=== PATIENT | female | born 1995 | race Caucasian/White ===

== ENCOUNTER 2021-08-13 20:08 | Emergency (ER) | payer MEDICAID, OTHER, SELFPAY ==
--- NOTE | ~2021-08-13 | US_ITS ---
EXAMINATION: US OBSTETRICAL ULTRASOUND CLINICAL INFORMATION: Right abdominal pain. Question ectopic. COMPARISON: None. LMP: 07/02/2021. Gestational age by maternal dates is 6 weeks 1 day. Estimated date of delivery by maternal dates is 04/08/2022. TECHNIQUE: Transabdominal and endovaginal pelvic ultrasound. FINDINGS: There is a single intrauterine gestational sac with visible yolk sac. There is no pole seen at this time. There is no significant subchorionic hemorrhage or hematoma. Mean sac diameter: 0.68 cm (5 weeks 2 days). MATERNAL ADNEXA: The right maternal ovary measures 4.4 x 2.8 x 3 cm. Corpus luteal cyst noted. The left maternal ovary measures 3.9 x 1.8 x 2.1 cm. No adnexal mass. There is no significant maternal adnexal mass. Small volume of free fluid near the right ovary. US/US OB pelvic and transvaginal IMPRESSION: There is no ectopic identified. There is an intrauterine gestational sac with yolk sac. No pole seen at this time, possibly secondary to the early stage of . Continued follow-up recommended.
[2021-08-13 20:16] VITALS: BP 106/54; PULSE 84; RESP 18; TEMP 37.3; O2SAT 100; BMI 23.2
--- NOTE | 2021-08-13 22:47 | ED_ITS ---
HPI - Female Genitourinary General Chief complaint: Vaginal Bleeding <Des Heredia MD - Last Filed: 08/14/21 00:59> Stated complaint: , bleeding + cramping <Des Heredia MD - Last Filed: 08/14/21 00:59> Time Seen by Provider: 08/13/21 22:47 <Des Heredia MD - Last Filed: 08/14/21 00:59> Source: patient <Des Heredia MD - Last Filed: 08/14/21 00:59> Mode of arrival: ambulatory <Des Heredia MD - Last Filed: 08/14/21 00:59> Limitations: no limitations <Des Heredia MD - Last Filed: 08/14/21 00:59> History of Present Illness HPI Narrative: Patient is currently , 1 week ago she had spotting. Today she had cramping. , LMP 8/17. Positive dysuria <Des Heredia MD - Last Filed: 08/14/21 00:59> Related Data Allergies/Adverse reactions: Allergies Allergy/AdvReac Type Severity Reaction Status Date / Time No Known Allergies Allergy Verified 08/13/21 22:50 <Des Heredia MD - Last Filed: 08/14/21 00:59> Review of Systems Constitutional: Constitutional: Reports no additional constitutional complaints <Des Heredia MD - Last Filed: 08/14/21 00:59> Eyes: Eyes: Reports no additional eye complaints <Des Heredia MD - Last Filed: 08/14/21 00:59> ENT: Denies dizziness <Des Heredia MD - Last Filed: 08/14/21 00:59> Cardiovascular: Cardiovascular: Reports no additional cardiovascular complaints <Des Heredia MD - Last Filed: 08/14/21 00:59> Respiratory: Respiratory: Reports as per HPI <Des Heredia MD - Last Filed: 08/14/21 00:59> Gastrointestinal: Gastrointestinal: Reports no additional gastrointestinal complaints <Des Heredia MD - Last Filed: 08/14/21 00:59> Genitourinary: Genitourinary: Reports no additional female genitourinary complaints <Des Heredia MD - Last Filed: 08/14/21 00:59> Musculoskeletal: Musculoskeletal: Reports no additional musculoskeletal complaints <Des Heredia MD - Last Filed: 08/14/21 00:59> Integumentary/Breasts: Skin/Breast: Denies rash <Des Hereida MD - Last Filed: 08/14/21 00:59> Neurologic: Reports system reviewed and no additional complaints, except as documented, Denies dizziness and Denies Sensory deficit (Neuro) <Des Heredia MD - Last Filed: 08/14/21 00:59> Psychiatric: Psychiatric: Denies anxiety <Des Heredia MD - Last Filed: 08/14/21 00:59> [facility] Social History Social History: Social History Alcohol intake: never Patient Tobacco Use Status: Never used Tobacco Use of substances other than those prescribed or required for medical reasons: No Advance Directives: No Advance Directives Information Provided: Yes Patient : Yes <Des Heredia MD - Last Filed: 08/14/21 00:59> Physical Exam Vital Signs: Vital Signs: Last Vital Signs Temp 98.2 F 08/14/21 02:26 Pulse 70 08/14/21 02:26 Resp 18 08/14/21 02:26 BP 96/60 08/14/21 02:26 Pulse Ox 100 08/14/21 02:26 Body Mass Index 23.2 <Des Heredia MD - Last Filed: 08/14/21 00:59> Vital Signs: Last Vital Signs Temp 98.2 F 08/14/21 02:26 Pulse 70 08/14/21 02:26 Resp 18 08/14/21 02:26 BP 96/60 08/14/21 02:26 Pulse Ox 100 08/14/21 02:26 Body Mass Index 23.2 <Martin De La Torre MD - Last Filed: 08/14/21 02:28> Const: General: healthy appearing <Des Heredia MD - Last Filed: 08/14/21 00:59> Nutritional Appearance: average body habitus <Des Heredia MD - Last Filed: 08/14/21 00:59> Orientation/consciousness: oriented to person and patient oriented x3 <Des Heredia MD - Last Filed: 08/14/21 00:59> Limitations: no limitations <eDs Heredia MD - Last Filed: 08/14/21 00:59> HENMT: Head: Yes normal to inspection <Des Heredia MD - Last Filed: 08/14/21 00:59> Ears: external ears normal <Des Heredia MD - Last Filed: 08/14/21 00:59> General nose exam: Normal external nose present <Des Heredia MD - Last Filed: 08/14/21 00:59> Mouth: Normal oral and palatal mucosa present and oropharynx normal <Des Heredia MD - Last Filed: 08/14/21 00:59> Throat: Yes posterior oropharynx normal <Des Heredia MD - Last Filed: 08/14/21 00:59> Eyes: General: appearance normal, both eyes and all related structures < Des Heredia MD - Last Filed: 08/14/21 00:59> Neck: Other: supple <Des Heredia MD - Last Filed: 08/14/21 00:59> Neck: Yes normal visual inspection <Des Heredia MD - Last Filed: 08/14/21 00:59> Chest: Chest palpation & inspection: normal inspection of the chest <Des Heredia MD - Last Filed: 08/14/21 00:59> Resp: Auscultation: clear to auscultation bilaterally <Des Heredia MD - Last Filed: 08/14/21 00:59> Cardio: Jugular venous distension: no JVD <Des Heredia MD - Last Filed: 08/14/21 00:59> Rate: regular rate <Des Heredia MD - Last Filed: 08/14/21 00:59> Rhythm: regular rhythm <Des Heredia MD - Last Filed: 08/14/21 00:59> Heart sounds: S1 normal heart sound present and S2 normal heart sound present <Des Heredia MD - Last Filed: 08/14/21 00:59> GI: Other: soft abdomen, mild right lower abdominal pain <Des Heredia MD - Last Filed: 08/14/21 00:59> Auscultation: normal bowel sounds <Des Heredia MD - Last Filed: 08/14/21 00:59> : General: Yes no CVA tenderness <Des Heredia MD - Last Filed: 08/14/21 00:59> Back/Spine/Pelvis: Back: no CVA tenderness <Des Heredia MD - Last Benjamín ed: 08/14/21 00:59> Skin: General skin exam: no rashes or lesions noted <Des Heredia MD - Last Filed: 08/14/21 00:59> Neuro: General: oriented to person and patient oriented x3 <Des Heredia MD - Last Filed: 08/14/21 00:59> Cranial nerves: Yes CN's II-XII intact bilaterally <Des Heredia MD - Last Filed: 08/14/21 00:59> Motor exam (neuro): 5/5 motor strength present throughout <Des Heredia MD - Last Filed: 08/14/21 00:59> Sensory Exam: No Sensory deficit (Neuro) <Des Heredia MD - Last Filed: 08/14/21 00:59> Extrem: General: Yes normal to inspection <Des Heredia MD - Last Filed: 08/14/21 00:59> Psych: Appearance: grossly normal <Des Heredia MD - Last Filed: 08/14/21 00:59> Course Reevaluation(s) Reevaluation #1: quantitative was 3808, bedside ultrasound did not show IUP will obtain transvaginal for rule out ectopic <Des Heredia MD - Last Filed: 08/14/21 00:59> Time: 00:45 <Des Heredia MD - Last Filed: 08/14/21 00:59> Reevaluation #2: signed Patient out to Dr De La Torre <Des Heredia MD - Last Filed: 08/14/21 00:59> Time: 00:59 <Des Heredia MD - Last Filed: 08/14/21 00:59> Reevaluation #3: Ultrasound showed IUP no pole seen likely 6 weeks 1 day no ectopics in discharge patient home patient without any significant discomfort or bleeding <Martin De La Torre MD - Last Filed: 08/14/21 02:28> Time: 02:28 <Martin De La Torre MD - Last Filed: 08/14/21 02:28> MDM - Female Genitourinary Lab Data Result diagrams: : 08/13/21 23:12 08/13/21 23:12 <Des Heredia MD - Last Filed: 08/14/21 00:59> Labs: Lab Results 08/13/21 08/13/21 08/13/21 Range/Units 23:12 23:12 23:25 WBC 8.3 (4.8-10.8) X10*3/uL RBC 3.77 L (4.20-5.50) X10*6/uL Hgb 11.5 L (12.0-16.0) g/dl Hct 34.0 L (37-47) % MCV 90.2 (80-98) fL MCH 30.5 (27.0-33.0) pg MCHC 33.8 (31.0-35.0) g/dl RDW 13.1 (11.0-16.0) % Plt Count 354 (160-400) X10*3/uL MPV 8.6 L (9.4-12.3) fL Immature Gran % (Auto) 0.1 (0.0-0.4) % Neut % (Auto) 48.1 (45-73) % Lymph % (Auto) 39.5 (20-40) % [place] % (Auto) 10.2 (2-11) % Eos % (Auto) 1.6 (0-4) % Baso % (Auto) 0.5 (0-2) % Lymph # (Auto) 3.3 (1.2-4.9) X10*3/uL [place] # (Auto) 0.9 (0.1-1.2) X10*3/uL Eos # (Auto) 0.1 (0.0-0.4) X10*3/uL Baso # (Auto) 0.0 (0.0-0.2) X10*3/uL Abs Immat Gran (auto) 0.01 (0.00-0.03) X10*3/uL Absolute Neuts (auto) 4.0 (2.0-8.3) X10*3/uL Absolute Nucleated RBC 0.000 (0.0-0.012) X10*3/uL Nucleated RBC % (auto) 0.0 (0.0-0.2) /100WBC Sodium 137 (135-145) mmol/L Potassium 4.2 (3.3-5.1) mmol/L Chloride 108 (96-108) mmol/L Carbon Dioxide 21 L (22-29) mmol/L Anion Gap 12 (12-20) BUN 6 L (9-16) mg/dL Creatinine 0.66 (0.5-1.4) mg/dL Estim Creat Clear Calc 103.0 Estimated GFR > 60 Random Glucose 93 (60-115) mg/dL Calcium 8.8 (8.4-10.2) mg/dL Beta HCG, Quant 3808 mIU/mL Urine Color YELLOW Urine Appearance HAZY Urine pH 7.5 (5.0-8.0) Ur Specific [place] 1.015 (1.005-1.025) Urine Protein NEG (NEG-TRACE) MG/DL Urine Glucose (UA) NEG (NEG) MG/DL Urine Ketones NEG (NEG) MG/DL Urine Blood NEG (NEG) Urine Nitrite NEG (NEG) Ur Leukocyte Esterase NEG (NEG) <Des Heredia MD - Last Filed: 08/14/21 00:59> Lab Results 08/13/21 08/13/21 08/13/21 Range/Units 23:12 23:12 23:25 WBC 8.3 (4.8-10.8) X10*3/uL RBC 3.77 L (4.20-5.50) X10*6/uL Hgb 11.5 L (12.0-16.0) g/dl Hct 34.0 L (37-47) % MCV 90.2 (80-98) fL MCH 30.5 (27.0-33.0) pg MCHC 33.8 (31.0-35.0) g/dl RDW 13.1 (11.0-16.0) % Plt Count 354 (160-400) X10*3/uL MPV 8.6 L (9.4-12.3) fL Immature Gran % (Auto) 0.1 (0.0-0.4) % Neut % (Auto) 48.1 (45-73) % Lymph % (Auto) 39.5 (20-40) % [place] % (Auto) 10.2 (2-11) % Eos % (Auto) 1.6 (0-4) % Baso % (Auto) 0.5 (0-2) % Lymph # (Auto) 3.3 (1.2-4.9) X10*3/uL [place] # (Auto) 0.9 (0.1-1.2) X10*3/uL Eos # (Auto) 0.1 (0.0-0.4) X10*3/uL Baso # (Auto) 0.0 (0.0-0.2) X10*3/uL Abs Immat Gran (auto) 0.01 (0.00-0.03) X10*3/uL Absolute Neuts (auto) 4.0 (2.0-8.3) X10*3/uL Absolute Nucleated RBC 0.000 (0.0-0.012) X10*3/uL Nucleated RBC % (auto) 0.0 (0.0-0.2) /100WBC Sodium 137 (135-145) mmol/L Potassium 4.2 (3.3-5.1) mmol/L Chloride 108 (96-108) mmol/L Carbon Dioxide 21 L (22-29) mmol/L Anion Gap 12 (12-20) BUN 6 L (9-16) mg/dL Creatinine 0.66 (0.5-1.4) mg/dL Estim Creat Clear Calc 103.0 Estimated GFR > 60 Random Glucose 93 (60-115) mg/dL Calcium 8.8 (8.4-10.2) mg/dL Beta HCG, Quant 3808 mIU/mL Urine Color YELLOW Urine Appearance HAZY Urine pH 7.5 (5.0-8.0) Ur Specific [place] 1.015 (1.005-1.025) Urine Protein NEG (NEG-TRACE) MG/DL Urine Glucose (UA) NEG (NEG) MG/DL Urine Ketones NEG (NEG) MG/DL Urine Blood NEG (NEG) Urine Nitrite NEG (NEG) Ur Leukocyte Esterase NEG (NEG) <Martin De La Torre MD - Last Filed: 08/14/21 02:28> Discharge Plan Discharge Clinical Impression: First-trimester bleeding <Des Heredia MD - Last Filed: 08/14/21 00:59> Patient Disposition: Home, Self-Care <Des Heredia MD - Last Filed: 08/14/21 00:59> Instructions: (ED), Subchorionic Hemorrhage (ED) <Des Heredia MD - Last Filed: 08/14/21 00:59> Additional Instructions: Follow-up with your OB doctor Report to ER if increased vaginal bleeding Seguimiento con ordaz m?dico obstetra Informe a la ricky de emergencias si aumenta el sangrado vaginal <Des Heredia MD - Last Filed: 08/14/21 00:59> Interventions: ED Discharge Assessment Last Done: 08/14/21 02:27 <Des Heredia MD - Last Filed: 08/14/21 00:59> Print Language: Paraguayan <Des Heredia MD - Last Filed: 08/14/21 00:59>
[2021-08-13 23:19] LABS: MANUAL DIFF FLAG NO
[2021-08-13 23:20] LABS: Basophils Percent Auto 0.5 % (0-2); Eosinophils Absolute Auto 0.1 X10*3/uL (0.0-0.4); Eosinophils Percent Auto 1.6 % (0-4); Hemoglobin 11.5 g/dl (12.0-16.0); Imm Gran Abs Auto 0.01 X10*3/uL (0.00-0.03); Imm Gran Pct Auto 0.1 % (0.0-0.4); Lymphocytes Absolute Auto 3.3 X10*3/uL (1.2-4.9); Lymphocytes Percent Auto 39.5 % (20-40); Mean Corpuscular HGB Conc 33.8 g/dl (31.0-35.0); Mean Corpuscular Hemoglobin 30.5 pg (27.0-33.0); Mean Corpuscular Volume 90.2 fL (80-98); Mean Platelet Volume 8.6 fL (9.4-12.3); Monocytes Absolute Auto 0.9 X10*3/uL (0.1-1.2); Monocytes Percent Auto 10.2 % (2-11); Neutrophils Percent Auto 48.1 % (45-73); Platelet Count 354 X10*3/uL (160-400); Red Blood Count 3.77 X10*6/uL (4.20-5.50); Red Cell Distribution Width 13.1 % (11.0-16.0); White Blood Count 8.3 X10*3/uL (4.8-10.8)
[2021-08-13 23:35] LABS: Appearance Urine HAZY; Color Urine YELLOW; Glucose Urine UA NEG (NEG); Leukocyte Esterase Urine NEG (NEG); Nitrite Urine NEG (NEG); PH 7.5 (5.0-8.0); Specific Gravity - Urine 1.015 (1.005-1.025); Urine Blood NEG (NEG); Urine Ketones NEG (NEG); Urine Protein NEG (NEG-TRACE)
[2021-08-13 23:38] LABS: Anion Gap 12 (12-20); Blood Urea Nitrogen 6 mg/dL (9-16); Calcium 8.8 mg/dL (8.4-10.2); Carbon Dioxide 21 mmol/L (22-29); Chloride 108 mmol/L (96-108); Estimated Glomerular Filt Rate > 60; Glucose Random 93 mg/dL (60-115); Potassium 4.2 mmol/L (3.3-5.1); Sodium 137 mmol/L (135-145)
[2021-08-14 00:35] LABS: HCG Quantitative 3808 mIU/mL
[2021-08-14 00:44] VITALS: BP 104/60; PULSE 86; RESP 15; TEMP 37; O2SAT 100
[2021-08-14 02:26] VITALS: BP 96/60; PULSE 70; RESP 18; TEMP 36.8; O2SAT 100
== END 2021-08-14 02:31 | disposition home or self-care (01) ==
PROVIDERS: Emergency Provider Emergency Medicine; PCP Nurse Practitioner Family
DX: O20.9 Hemorrhage in early pregnancy, unspecified (principal); Z3A.01 Less than 8 weeks gestation of pregnancy
CPT/HCPCS: 36415; 76801; 76817; 80048; 81003; 84702; 85025; 99284

== ENCOUNTER 2021-09-06 09:40 | Emergency (ER) | payer MEDICAID, SELFPAY ==
--- NOTE | ~2021-09-06 | US_ITS ---
EXAMINATION: US OBSTETRICAL ULTRASOUND CLINICAL INFORMATION: of 8 weeks and bleeding. COMPARISON: August 14, 2021. LMP: July 02, 2021. Gestational age by maternal dates is 9 weeks 3 days. Estimated date of delivery by maternal dates is April 08, 2022. TECHNIQUE: Ultrasound of the maternal pelvis is performed using transabdominal and transvaginal transducers. Transvaginal imaging is performed due to inadequate visualization transabdominally. M-mode Doppler is also performed. FINDINGS: There is a single intrauterine gestational sac with enlarged yolk sac 6 mm in diameter. No pole is identified. There is no significant subchorionic hemorrhage or hematoma. HR: Not detected. CRL (crown rump length): Not seen AUA: 6 weeks 0 days. FELICIA (estimated date of delivery): January 01, 2022 +/- 4 days. MATERNAL ADNEXA: The right maternal ovary measures 2.6 x 1.5 x 2.4 cm. There is a 1.3 x 1.9 x 1.3 cm likely corpus luteum cyst. The left maternal ovary measures 2.6 x 1.9 x 1.8 cm. There is no significant maternal adnexal mass. There is a small amount of fluid seen about both ovaries. US/US OB pelvic and transvaginal IMPRESSION: Intrauterine seen without pole or heart rate with enlarged yolk sac. Recommend continued close follow-up. At time of the first ultrasound of August 14, 2021 the average ultrasound age was 5 weeks and 2 days and using those dates the expected gestational age at this time would be approximately 8 weeks and 4 days versus the ultrasound age at this time of 6 weeks 0 days..
[2021-09-06 09:58] VITALS: BP 107/48; PULSE 80; RESP 18; TEMP 36.3; O2SAT 100; BMI 23.2
--- NOTE | 2021-09-06 10:48 | ED.FEMALEGU ---
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 Patient states she has a headache everyday. she was seen in the ED weeks ago, no on US. . LMP 07/02/21 Onset (ago): day(s) Severity: mild Vaginal bleeding: clots Associated symptoms: abdominal pain Related Data Allergies Allergy/AdvReac Type Severity Reaction Status Date / Time No Known Allergies Allergy Verified 08/13/21 22:50 Review of Systems Constitutional: Constitutional: Reports no additional constitutional complaints Eyes: Eyes: Reports no additional eye complaints ENT: Denies dizziness Cardiovascular: Cardiovascular: Reports no additional cardiovascular complaints Respiratory: Respiratory: Reports as per HPI Gastrointestinal: Gastrointestinal: Reports no additional gastrointestinal complaints Genitourinary: Genitourinary: Reports no additional female genitourinary complaints Musculoskeletal: Musculoskeletal: Reports no additional musculoskeletal complaints Integumentary/Breasts: Skin/Breast: Denies rash Neurologic: Reports system reviewed and no additional complaints, except as documented, Denies dizziness and Denies Sensory deficit (Neuro) Psychiatric: Psychiatric: Denies anxiety [facility] Social History Social History Alcohol intake: never Patient Tobacco Use Status: Never used Tobacco Advance Directives: No Advance Directives Information Provided: No Patient : Yes Physical Exam Vital Signs: Vital Signs: Last Vital Signs Temp 97.4 F 09/06/21 09:58 Pulse 80 09/06/21 09:58 Resp 18 09/06/21 09:58 BP 107/48 L 09/06/21 09:58 Pulse Ox 100 09/06/21 09:58 Body Mass Index 23.2 Const: General: healthy appearing Nutritional Appearance: average body habitus Orientation/consciousness: oriented to person and patient oriented x3 Limitations: no limitations HENMT: Head: Yes normal to inspection Ears: external ears normal General nose exam: Normal external nose present Mouth: Normal oral and palatal mucosa present and oropharynx normal Throat: Yes posterior oropharynx normal Eyes: General: appearance normal, both eyes and all related structures Neck: Other: supple Neck: Yes normal visual inspection Chest: Chest palpation & inspection: normal inspection of the chest Resp: Auscultation: clear to auscultation bilaterally Cardio: Jugular venous distension: no JVD Rate: regular rate Rhythm: regular rhythm Heart sounds: S1 normal heart sound present and S2 normal heart sound present GI: Inspection: Yes normal to inspection Palpation (GI): Soft to palpation, nontender and No hepatosplenomegaly present Auscultation: normal bowel sounds : General: Yes no CVA tenderness Back/Spine/Pelvis: Back: no CVA tenderness Skin: General skin exam: no rashes or lesions noted Neuro: General: oriented to person and patient oriented x3 Cranial nerves: Yes CN's II-XII intact bilaterally Motor exam (neuro): 5/5 motor strength present throughout Sensory Exam: No Sensory deficit (Neuro) Extrem: General: Yes normal to inspection Psych: Appearance: grossly normal Course Reevaluation(s) Reevaluation #1: Bedside ultrasound shows IUP could not see heart will send for transvaginal us Time: 11:05 Reevaluation #2: Official transvaginal show 5 week , HCG doubled, will dc with threatened ab Time: 13:[address] [facility] - Female Genitourinary Lab Data Result diagrams: 09/06/21 12:10 Labs: Lab Results 09/06/21 09/06/21 09/06/21 Range/Units 12:10 12:10 12:10 WBC 6.1 (4.8-10.8) X10*3/uL RBC 4.30 (4.20-5.50) X10*6/uL Hgb 13.0 (12.0-16.0) g/dl Hct 39.3 (37-47) % MCV 91.4 (80-98) fL MCH 30.2 (27.0-33.0) pg MCHC 33.1 (31.0-35.0) g/dl RDW 13.0 (11.0-16.0) % Plt Count 361 (160-400) X10*3/uL MPV 8.3 L (9.4-12.3) fL Immature Gran % (Auto) 0.3 (0.0-0.4) % Neut % (Auto) 57.4 (45-73) % Lymph % (Auto) 31.6 (20-40) % [place] % (Auto) 7.6 (2-11) % Eos % (Auto) 2.3 (0-4) % Baso % (Auto) 0.8 (0-2) % Lymph # (Auto) 1.9 (1.2-4.9) X10*3/uL [place] # (Auto) 0.5 (0.1-1.2) X10*3/uL Eos # (Auto) 0.1 (0.0-0.4) X10*3/uL Baso # (Auto) 0.1 (0.0-0.2) X10*3/uL Abs Immat Gran (auto) 0.02 (0.00-0.03) X10*3/uL Absolute Neuts (auto) 3.5 (2.0-8.3) X10*3/uL Absolute Nucleated RBC 0.000 (0.0-0.012) X10*3/uL Nucleated RBC % (auto) 0.0 (0.0-0.2) /100WBC Beta HCG, Quant 6787 mIU/mL Urine Color Urine Appearance Urine pH (5.0-8.0) Ur Specific [place] (1.005-1.025) Urine Protein (NEG-TRACE) MG/DL Urine Glucose (UA) (NEG) MG/DL Urine Ketones (NEG) MG/DL Urine Blood (NEG) Urine Nitrite (NEG) Ur Leukocyte Esterase (NEG) Urine RBC (0) /HPF Urine WBC (0-4) /HPF Ur Squamous Epith Cells /LPF Urine Bacteria /LPF Urine Test POSITIVE H (NEGATIVE) 09/06/21 Range/Units 12:10 WBC (4.8-10.8) X10*3/uL RBC (4.20-5.50) X10*6/uL Hgb (12.0-16.0) g/dl Hct (37-47) % MCV (80-98) fL MCH (27.0-33.0) pg MCHC (31.0-35.0) g/dl RDW (11.0-16.0) % Plt Count (160-400) X10*3/uL MPV (9.4-12.3) fL Immature Gran % (Auto) (0.0-0.4) % Neut % (Auto) (45-73) % Lymph % (Auto) (20-40) % [place] % (Auto) (2-11) % Eos % (Auto) (0-4) % Baso % (Auto) (0-2) % Lymph # (Auto) (1.2-4.9) X10*3/uL [place] # (Auto) (0.1-1.2) X10*3/uL Eos # (Auto) (0.0-0.4) X10*3/uL Baso # (Auto) (0.0-0.2) X10*3/uL Abs Immat Gran (auto) (0.00-0.03) X10*3/uL Absolute Neuts (auto) (2.0-8.3) X10*3/uL Absolute Nucleated RBC (0.0-0.012) X10*3/uL Nucleated RBC % (auto) (0.0-0.2) /100WBC Beta HCG, Quant mIU/mL Urine Color YELLOW Urine Appearance HAZY Urine pH 6.5 (5.0-8.0) Ur Specific [place] 1.010 (1.005-1.025) Urine Protein NEG (NEG-TRACE) MG/DL Urine Glucose (UA) NEG (NEG) MG/DL Urine Ketones NEG (NEG) MG/DL Urine Blood 3+ H (NEG) Urine Nitrite NEG (NEG) Ur Leukocyte Esterase TRACE H (NEG) Urine RBC 15-29 H (0) /HPF Urine WBC 0-2 (0-4) /HPF Ur Squamous Epith Cells 1+ /LPF Urine Bacteria 2+ /LPF Urine Test (NEGATIVE) Imaging Data transvaginal US: Radiologist's impression: IMPRESSION: Intrauterine seen without pole or heart rate with enlarged yolk sac. Recommend continued close follow-up. ? At time of the first ultrasound of August 14, 2021 the average ultrasound age was 5 weeks and 2 days and using those dates the expected gestational age at this time would be approximately 8 weeks and 4 days versus the ultrasound age at this time of 6 weeks 0 days.. Discharge Plan Discharge Clinical Impression: Vaginal bleeding, Threatened Patient Disposition: Home, Self-Care Instructions: Threatened Miscarriage (ED) Referrals: Lázaro Farrell MD [Physician] - 1 week
[2021-09-06 12:15] LABS: MANUAL DIFF FLAG NO
[2021-09-06 12:17] LABS: Basophils Absolute Auto 0.1 X10*3/uL (0.0-0.2); Basophils Percent Auto 0.8 % (0-2); Eosinophils Absolute Auto 0.1 X10*3/uL (0.0-0.4); Eosinophils Percent Auto 2.3 % (0-4); Hematocrit 39.3 % (37-47); Imm Gran Abs Auto 0.02 X10*3/uL (0.00-0.03); Imm Gran Pct Auto 0.3 % (0.0-0.4); Lymphocytes Absolute Auto 1.9 X10*3/uL (1.2-4.9); Lymphocytes Percent Auto 31.6 % (20-40); Mean Corpuscular HGB Conc 33.1 g/dl (31.0-35.0); Mean Corpuscular Hemoglobin 30.2 pg (27.0-33.0); Mean Corpuscular Volume 91.4 fL (80-98); Mean Platelet Volume 8.3 fL (9.4-12.3); Monocytes Absolute Auto 0.5 X10*3/uL (0.1-1.2); Monocytes Percent Auto 7.6 % (2-11); Neutrophils Absolute Auto 3.5 X10*3/uL (2.0-8.3); Neutrophils Percent Auto 57.4 % (45-73); Platelet Count 361 X10*3/uL (160-400); White Blood Count 6.1 X10*3/uL (4.8-10.8)
[2021-09-06 12:18] LABS: Appearance Urine HAZY; Color Urine YELLOW; Glucose Urine UA NEG (NEG); Leukocyte Esterase Urine TRACE (NEG); Nitrite Urine NEG (NEG); PH 6.5 (5.0-8.0); UACC Culture Trigger YES; Urine Blood 3+ (NEG); Urine Ketones NEG (NEG); Urine Protein NEG (NEG-TRACE)
[2021-09-06 12:20] LABS: UPreg QC Valid YES; Urine Pregnancy POSITIVE (NEGATIVE)
[2021-09-06 12:37] LABS: HCG Quantitative 6787 mIU/mL
[2021-09-06 12:40] LABS: Bacteria Urine 2+ /LPF; Squamous Epithelial Cell Urine 1+ /LPF; WBC Urine 0-2 /HPF (0-4)
== END 2021-09-06 13:20 | disposition home or self-care (01) ==
PROVIDERS: Emergency Provider Emergency Medicine; PCP Nurse Practitioner Family
DX: O20.0 Threatened abortion (principal); R10.9 Unspecified abdominal pain; Z3A.08 8 weeks gestation of pregnancy; Z79.899 Other long term (current) drug therapy
CPT/HCPCS: 36415; 76801; 76817; 81001; 81025; 84702; 85025; 87086; 99283; 99284

== ENCOUNTER 2021-09-11 15:05 | Outpatient (REF) | payer OTHER, SELFPAY ==
[2021-09-11 17:53] LABS: HCG Quantitative 648 mIU/mL
[2021-09-12 01:15] LABS: CT PCR DETECTED (Not Detect.)
[2021-09-12 01:16] LABS: NG PCR NOT DETECTED (Not Detect.)
== END 2021-09-11 15:06 | disposition home or self-care (01) ==
LOC: HO.LAB 15:05
PROVIDERS: PCP Nurse Practitioner Family; Visit Provider Obstetrics & Gynecology
DX: O03.9 Complete or unspecified spontaneous abortion without complication (principal)
CPT/HCPCS: 36415; 84702; 86850; 86900; 86901; 87491; 87591; 88305; 99212

== ENCOUNTER 2021-09-12 09:59 | Outpatient (REF) | payer OTHER, SELFPAY ==
--- NOTE | ~2021-09-12 | US_ITS ---
EXAMINATION: US OBSTETRICAL ULTRASOUND CLINICAL INFORMATION: Question incomplete COMPARISON: Previous exam most recent 09/06/2021. TECHNIQUE: Transabdominal and transvaginal pelvic ultrasound was performed. Transvaginal exam was performed for better visualization of the uterus and ovaries. FINDINGS: The uterus is retroverted and measures 8.7 x 4.7 x 6 cm. No focal uterine lesion is seen. Endometrial thickness measures 0.7 cm. The endometrium is slightly heterogeneous appearing. The endometrium does not appear hypervascular. There are nabothian cysts in the cervix. Right ovary measures 3.3 x 3.1 x 2.7 cm. The left ovary measures 3.3 x 1.9 x 3.1 cm. There are multiple small ovarian simple cysts or follicles. There is a dominant minimally complex cyst with thick echogenic wall in the right ovary measuring 1.9 x 1.1 x 1.6 cm. There is no fluid in the pelvis. US/US OB pelvic and transvaginal IMPRESSION: Slightly thickened heterogeneous endometrium. Endometrial thickness measures 0.7 cm and does not appear hypervascular.
[2021-09-13 06:45] LABS: Syphilis Screen Nonreactive (Nonreactive)
[2021-09-13 06:53] LABS: ~HepC Num1 0.04 S/CO (0.00-0.79); ~Hepatitis C Antibody Nonreactive (Nonreactive)
[2021-09-13 07:40] LABS: HBsAGNum1 0.15 S/CO (0.00-0.99); HIV AB/AG Nonreactive (Nonreactive); HIV Num 1 0.06 S/CO (0.00-0.99); Hepatitis B Surface Antigen Negative (Negative)
== END 2021-09-12 10:00 | disposition home or self-care (01) ==
LOC: HO.HMGCX 09:59
PROVIDERS: Visit Provider Obstetrics & Gynecology
DX: Z11.4 Encounter for screening for human immunodeficiency virus [HIV] (principal); O03.9 Complete or unspecified spontaneous abortion without complication; A74.9 Chlamydial infection, unspecified
CPT/HCPCS: 36415; 76801; 76817; 86780; 86803; 87340; 87389; 99212

== ENCOUNTER 2021-09-23 09:08 | Outpatient (REF) | payer OTHER, SELFPAY ==
[2021-09-24 01:31] LABS: CT PCR NOT DETECTED (Not Detect.); NG PCR NOT DETECTED (Not Detect.)
[2021-09-24 12:04] LABS: BV Int Neg Control Negative (Negative); BV Int Pos Control Positive (Positive)
== END 2021-09-23 09:09 | disposition home or self-care (01) ==
LOC: HO.LAB 09:08
PROVIDERS: Visit Provider Obstetrics & Gynecology
DX: A74.9 Chlamydial infection, unspecified (principal)
CPT/HCPCS: 87480; 87491; 87510; 87591; 87660; 99212

== ENCOUNTER 2021-10-01 09:08 | Outpatient (REF) | payer OTHER, SELFPAY ==
[2021-10-01 14:45] LABS: HCG Quantitative 3 mIU/mL
[2021-10-02 08:44] LABS: BV Int Neg Control Negative (Negative); BV Int Pos Control Positive (Positive)
[2021-10-02 09:41] LABS: CT PCR NOT DETECTED (Not Detect.); NG PCR NOT DETECTED (Not Detect.)
== END 2021-10-01 09:09 | disposition home or self-care (01) ==
LOC: HO.LAB 09:08
PROVIDERS: PCP Nurse Practitioner Family; Visit Provider Obstetrics & Gynecology
DX: O03.9 Complete or unspecified spontaneous abortion without complication (principal); N89.8 Other specified noninflammatory disorders of vagina
CPT/HCPCS: 36415; 84702; 87480; 87491; 87510; 87591; 87660; 88142

== ENCOUNTER 2021-12-12 08:10 | Outpatient (REF) | payer OTHER, SELFPAY ==
[2021-12-12 10:41] LABS: HCG Quantitative 34690 mIU/mL
[2021-12-12 16:25] LABS: CT PCR NOT DETECTED (Not Detect.); NG PCR NOT DETECTED (Not Detect.)
== END 2021-12-12 08:11 | disposition home or self-care (01) ==
LOC: HO.LAB 08:10
PROVIDERS: PCP Nurse Practitioner Family; Visit Provider Obstetrics & Gynecology
DX: Z34.90 Encounter for supervision of normal pregnancy, unspecified, unspecified trimester (principal)
CPT/HCPCS: 36415; 84702; 87491; 87591; 99212

== ENCOUNTER 2021-12-13 08:58 | Outpatient (REF) | payer OTHER, SELFPAY ==
--- NOTE | ~2021-12-13 | US_ITS ---
EXAMINATION: US OBSTETRICAL ULTRASOUND CLINICAL INFORMATION: Check size and dates. COMPARISON: None. LMP: 10/25/2021. Gestational age by maternal dates is 7 weeks 0 days. Estimated date of delivery by maternal dates is 08/01/2022. TECHNIQUE: Transabdominal and transvaginal first trimester OB ultrasound. Transvaginal exam was performed for better visualization of the gestational sac. FINDINGS: There is a single intrauterine gestational sac with visible yolk sac, embryo/fetus, and cardiac activity. There is no significant subchorionic hemorrhage or hematoma. HR: 108 beats per minute. CRL (crown rump length): 0.34 cm (6 weeks 0 days +/- 4 days). FELICIA (estimated date of delivery): 08/08/2022 +/- 4 days. MATERNAL ADNEXA: The right maternal ovary measures 3.5 x 2.1 x 2.1 cm. The left maternal ovary measures 3.7 x 3 x 1.6 cm. There is a small amount of fluid in the pelvis. US/US OB pelvic and transvaginal IMPRESSION: 1. Single intrauterine gestation with ultrasound gestational age of 6 weeks 0 days +/- 4 days. 2. Estimated date of delivery is 08/08/2022 +/- 4 days.
== END 2021-12-13 08:59 | disposition home or self-care (01) ==
LOC: HO.US 08:58
PROVIDERS: Visit Provider Obstetrics & Gynecology
DX: Z34.91 Encounter for supervision of normal pregnancy, unspecified, first trimester (principal); Z3A.01 Less than 8 weeks gestation of pregnancy
CPT/HCPCS: 76801; 76817

== ENCOUNTER → 2021-12-17 15:36 | Outpatient (BNVA) | payer OTHER, SELFPAY | PROVIDERS: Visit Provider Obstetrics & Gynecology ==

== ENCOUNTER 2021-12-18 10:22 | Outpatient (REF) | payer OTHER, SELFPAY | END 2021-12-18 10:23 | disposition home or self-care (01) | LOC: HO.US 10:22 | PROVIDERS: PCP Nurse Practitioner Family; Visit Provider Obstetrics & Gynecology | DX: O26.851 Spotting complicating pregnancy, first trimester (principal) | CPT/HCPCS: 99212 ==

== ENCOUNTER 2021-12-18 11:28 | Outpatient (REF) | payer OTHER, SELFPAY ==
--- NOTE | ~2021-12-18 | US_ITS ---
EXAMINATION: US OBSTETRICAL ULTRASOUND CLINICAL INFORMATION: Spotting COMPARISON: Previous exam most recent 12/13/2021. LMP: . Gestational age by maternal dates is . Estimated date of delivery by maternal dates is . TECHNIQUE: FINDINGS: There is a single intrauterine gestational sac with visible yolk sac, embryo/fetus, and cardiac activity. There is no significant subchorionic hemorrhage or hematoma. HR: 126 beats per minute. CRL (crown rump length): 0.82 cm (6 weeks 5 days +/- 4 days). FELICIA (estimated date of delivery): 08/08/2022 +/- 4 days. This agrees with dates from previous exam 12/13/2021. MATERNAL ADNEXA: The right maternal ovary measures 2.6 x 2.2 x 1.8 cm. The left maternal ovary measures 4.7 x 2.2 x 1.8 cm. There is no significant maternal adnexal mass. No maternal pelvic ascites. US/US OB pelvic and transvaginal IMPRESSION: 1. Single intrauterine gestation with ultrasound gestational age of 6 weeks 5 days +/- 4 days. 2. Estimated date of delivery is 08/08/2022 +/- 4 days. 3. No subchorionic hemorrhage is seen.
== END 2021-12-18 11:29 | disposition home or self-care (01) ==
LOC: HO.US 11:28
PROVIDERS: PCP Nurse Practitioner Family; Visit Provider Obstetrics & Gynecology
DX: O26.851 Spotting complicating pregnancy, first trimester (principal)
CPT/HCPCS: 76801; 76817

== ENCOUNTER → 2021-12-30 09:47 | Outpatient (BNVA) | payer OTHER, SELFPAY | PROVIDERS: PCP Nurse Practitioner Family; Visit Provider Obstetrics & Gynecology ==

== ENCOUNTER 2021-12-31 09:08 | Outpatient (REF) | payer OTHER, SELFPAY ==
[2021-12-31 11:26] LABS: Hematocrit 37.7 % (37.0-47.0); Hemoglobin 12.6 g/dl (12.0-16.0); Mean Corpuscular HGB Conc 33.4 g/dl (31.0-35.0); Mean Corpuscular Hemoglobin 30.4 pg (27.0-33.0); Mean Corpuscular Volume 90.8 fL (80.0-98.0); Mean Platelet Volume 8.9 fL (9.4-12.3); Platelet Count 344 X10*3/uL (160-400); Red Blood Count 4.15 X10*6/uL (4.20-5.50); Red Cell Distribution Width 12.4 % (11.0-16.0); White Blood Count 7.3 X10*3/uL (4.8-10.8)
[2021-12-31 11:51] LABS: Glucose 1 Hour PP 50gm Dose 99 mg/dL (60-140)
[2021-12-31 11:52] LABS: Amphetamine Screen Urine Not Detected (Not Detect); Barbiturates, Urine Not Detected (Not Detect); Benzodiazepines Screen Urine Not Detected (Not Detect); Cannabinoid Screen Urine Not Detected (Not Detect); Cocaine Screen Urine Not Detected (Not Detect); Fentanyl, urine Not Detected (Not Detect); Opiate Screen Urine Not Detected (Not Detect); Phencyclidine Screen Urine Not Detected (Not Detect)
[2021-12-31 12:15] LABS: HIV AB/AG Nonreactive (Nonreactive); HIV Num 1 0.07 S/CO (0.00-0.99)
[2021-12-31 12:25] LABS: HBsAGNum1 0.22 S/CO (0.00-0.99); Hepatitis B Surface Antigen Negative (Negative); ~HepC Num1 0.08 S/CO (0.00-0.79); ~Hepatitis C Antibody Nonreactive (Nonreactive)
[2022-01-01 03:52] LABS: Syphilis Screen Nonreactive (Nonreactive)
== END 2021-12-31 09:09 | disposition home or self-care (01) ==
LOC: HO.LAB 09:08
PROVIDERS: Visit Provider Obstetrics & Gynecology
DX: Z34.90 Encounter for supervision of normal pregnancy, unspecified, unspecified trimester (principal)
CPT/HCPCS: 80307; 85027; 86762; 86780; 86787; 86803; 86850; 86900; 86901; 87086; 87340; 87389

== ENCOUNTER 2022-01-31 11:56 | Outpatient (REF) | payer OTHER, SELFPAY ==
--- NOTE | ~2022-01-31 | US_ITS ---
EXAMINATION: OBSTETRICAL ULTRASOUND, FIRST TRIMESTER HISTORY: 26-year-old at 13.0 weeks of gestation NT screening COMPARISON: 12/18/2021 TECHNIQUE: Real time transabdominal imaging with color and M-mode Doppler. FINDINGS: A single, live IUP CRL of 69.3 mm c/w 13.2wks is noted. Heart Rate: 149 beats per minute. Normal yolk sac seen. NT was 1.45.mm. NB Present The embryo appears sonographically wnl for this GA. Both maternal ovaries are seen and appear normal. GESTATIONAL AGE: 1. Established GA: 13.0 wks 2. GA from [facility]: 13.2 wks ESTIMATED DATE OF DELIVERY: 1. Established FELICIA: 08/07/2022 2. FELICIA from [facility]: 08/06/2022 US/US OB 1T nuc measure IMPRESSION: 1. Single live IUP 2. Size equals dates 3. NT of 1.45 mm MFM Consultation: I reviewed the ultrasound findings along with significance of NT measurement. The NT of less than 3mm is generally reassuring. However, the sensitivity for T21 detection is only 60%. I reviewed the availability of serum aneuploidy screening which includes cell-free DNA and placental protein based tests. I discussed the sensitivity, false-positive rate, and other limitations associated with each test. I also reviewed the availability of invasive diagnostic tests that are associated small but definite risk of miscarriage. We also reviewed the differences between screening tests and diagnostic tests. After our discussion, she opted for the First trimester screening that is based on cell-free DNA or non-invasive testing (NIPT). The result will be faxed to your office in approximately 7 days. A follow up at 18 weeks for survey has been scheduled. Thank you very much for this referral. Total time 30 minutes. The time spent was devoted to counseling the patient about the disease and diagnosis, coordinating care including reviewing her records, pertinent lab data and studies, as well as discussing diagnostic evaluation and workup, plan therapeutic interventions and future disposition of care. This includes any additional research needed to obtain further information in formulating the plan of care of this patient. This note was generated with a voice recognition program. Please excuse any errors which may have been overlooked during my review of this note. Sometimes these errors may affect the content or meaning of a given sentence.
== END 2022-01-31 11:57 | disposition home or self-care (01) ==
LOC: HO.US 11:56
PROVIDERS: Visit Provider Obstetrics & Gynecology
DX: Z36.82 Encounter for antenatal screening for nuchal translucency (principal)
CPT/HCPCS: 76813

== ENCOUNTER 2022-02-06 13:38 | Outpatient (REF) | payer OTHER, SELFPAY ==
[2022-02-07 01:37] LABS: CT PCR NOT DETECTED (Not Detect.); NG PCR NOT DETECTED (Not Detect.)
[2022-02-07 09:01] LABS: BV Int Neg Control Negative (Negative); BV Int Pos Control Positive (Positive)
== END 2022-02-06 13:39 | disposition home or self-care (01) ==
LOC: HO.LAB 13:38
PROVIDERS: Visit Provider Advanced Practice Midwife
DX: O34.522 Maternal care for prolapse of gravid uterus, second trimester (principal); O09.292 Supervision of pregnancy with other poor reproductive or obstetric history, second trimester; Z3A.14 14 weeks gestation of pregnancy
CPT/HCPCS: 81003; 87480; 87491; 87510; 87591; 87660; 99212

== ENCOUNTER 2022-03-14 09:32 | Outpatient (REF) | payer OTHER, SELFPAY ==
--- NOTE | ~2022-03-14 | US_ITS ---
EXAMINATION: US OBSTETRICAL CLINICAL INFORMATION: 26-year-old at 19.0 weeks gestation Screening for anomaly COMPARISON: 01/31/2022 TECHNIQUE: Real-time transabdominal ultrasound was performed using C1-5 megahertz transducer. FINDINGS: A single, active, fetus is seen in breech presentation. The placenta is posterior without previa, and the amniotic fluid volume is wnl. The placental cord insertion is marginal. MEASUREMENTS: 1. Biparietal Diameter: 4.3 cm; 19.1 wks 2. Occipital Frontal Diameter: 5.7 cm 3. Head Circumference: 16.52 cm; 19.2 wks 4. Abdominal Circumference: 14.4 cm; 19.5 wks 5. Femur Length: 2.9 cm; 19.1 wks 6. Humerus Length: 2.94 cm; 19.5 wks 7. Tibia Length: 2.5 cm; 19.0 wks 8. Ulna Length: 2.6 cm; 19.5 wks 9. Lateral ventricle: 0.7 cm 10. Cerebellum: 1.93 cm; 19.6 wks 11. Cisterna Magna: 0.35 cm 12. Nuchal Fold: 3.6 mm 13. Heart Rate: 144 beats per minute Rt ovary: normal Lt ovary: normal Cervical length 3.9 cm on T/A. GESTATIONAL AGE: 1. Established GA: 19.0 wks 2. GA [facility]: 19.3 wks ESTIMATED DATE OF DELIVERY: 1. Established FELICIA: 08/08/2022 2. [facility]: 08/05/2022 ANATOMY: The visualized anatomy includes but not limited to: 1. Cranium: Normal 2. Intracranial anatomy: cavum septum pellucidi, lateral ventricles, choroid plexus, cerebellum, posterior fossa, third and fourth ventricles. 3. face: orbits, lip/palate, profile, nasal bone 4. Heart: four-chamber view of the heart, ventricular septum, foramen ovale, pulmonary vein, left and right outflow tracts, three-vessel view, 3 vessel trachea view, aortic and ductal arches, situs.. 5. Diaphragm: Normal 6. Abdominal wall: Normal 7. Cord Insertion: Normal 8. Spine: Cervical, thoracic, lumbar, sacral. 9. Stomach: Normal size and shape 10. Right Kidney: Normal 11. Left Kidney: Normal 12. 3 vessel cord: Normal 13. Upper extremity: Open hands, fifth digit. 14. Lower extremity: Tibia, fibula, bilateral feet. 15. Bladder: Normal 16. Genitalia: Male, patient aware US/US OB /maternal detail IMPRESSION: 1. Single, living, intrauterine with appropriate biometry. 2. Normal survey 3. Marginal placental cord insertion DISCUSSION: I reviewed today's ultrasound findings. We discussed the limitations of ultrasound in diagnosing aneuploidy and other congenital abnormalities. I reviewed the differences between screening test and diagnostic test. Amniocentesis was discussed and declined. She was informed that the baseline incidence of congenital abnormalities is approximately 3-5%. Not all these conditions are diagnosable in utero. RECOMMENDATIONS: 1. Interval growth evaluation has been scheduled in 6 weeks for marginal placental cord insertion. Thank you for allowing me to participate in her care. Total time 30 minutes. The time spent was devoted to counseling the patient about the disease and diagnosis, coordinating care including reviewing her records, pertinent lab data and studies, as well as discussing diagnostic evaluation and workup, plan therapeutic interventions and future disposition of care. This includes any additional research needed to obtain further information in formulating the plan of care of this patient. This note was generated with a voice recognition program. Please excuse any errors which may have been overlooked during my review of this note. Sometimes these errors may affect the content or meaning of a given sentence.
== END 2022-03-14 09:33 | disposition home or self-care (01) ==
LOC: HO.US 09:32
PROVIDERS: PCP Nurse Practitioner Family; Visit Provider Advanced Practice Midwife
DX: Z34.92 Encounter for supervision of normal pregnancy, unspecified, second trimester (principal); Z36.3 Encounter for antenatal screening for malformations; Z3A.19 19 weeks gestation of pregnancy
CPT/HCPCS: 76811

== ENCOUNTER → 2022-03-24 10:05 | Outpatient (BNVA) | payer OTHER, SELFPAY | PROVIDERS: Visit Provider Advanced Practice Midwife | DX: Z34.82 Encounter for supervision of other normal pregnancy, second trimester (principal); Z3A.21 21 weeks gestation of pregnancy | CPT/HCPCS: 99212 ==

== ENCOUNTER → 2022-04-22 10:48 | Outpatient (BNVA) | payer OTHER, SELFPAY | PROVIDERS: Visit Provider Advanced Practice Midwife | DX: Z34.82 Encounter for supervision of other normal pregnancy, second trimester (principal); Z3A.25 25 weeks gestation of pregnancy | CPT/HCPCS: 81003; 99212 ==

== ENCOUNTER 2022-04-25 13:47 | Outpatient (REF) | payer OTHER, SELFPAY ==
--- NOTE | ~2022-04-25 | US_ITS ---
EXAMINATION: OBSTETRICAL ULTRASOUND, Follow up HISTORY: 26-year-old at 25.0 weeks of gestation Size date discrepancy COMPARISON: 03/14/2022 TECHNIQUE: Real time transabdominal imaging with color and M-mode Doppler. PRESENTATION: Breech PLACENTA LOCATION: Posterior without previa AMNIOTIC FLUID: ANALI 8.3 MEASUREMENTS: 1. Biparietal Diameter: 6.6 cm; 26.4 wks 2. Head Circumference: 24.8 cm; 27.0 wks 3. Abdominal Circumference: 22.6 cm; 27.1 wks 4. Femur Length: 4.3 cm; 24.2 wks 5. Heart Rate: 133 beats per minute WEIGHT: EFW: 878 grams (1 lbs 15 oz) -- 83 %. BIOPHYSICAL PROFILE: Motion: 2 Tone: 2 Breathin Amniotic Fluid: 2 Total score: 8/8 GESTATIONAL AGE: 1. Established GA: 25.0 wks 2. GA from [facility]: 26.2 wks ESTIMATED DATE OF DELIVERY: 1. Established FELICIA: 08/08/2022 2. FELICIA from [facility]: 07/30/2022 US/US OB follow up IMPRESSION: 1. A single active fetus is in breech presentation 2. Size equals dates 3. Reassuring BPP and ANALI Thank you very much for this referral. This note was generated with a voice recognition program. Please excuse any errors which may have been overlooked during my review of this note. Sometimes these errors may affect the content or meaning of a given sentence.
== END 2022-04-25 13:48 | disposition home or self-care (01) ==
LOC: HO.US 13:47
PROVIDERS: PCP Nurse Practitioner Family; Visit Provider Advanced Practice Midwife
DX: O43.192 Other malformation of placenta, second trimester (principal); Z3A.25 25 weeks gestation of pregnancy
CPT/HCPCS: 76816

== ENCOUNTER 2022-05-13 09:55 | Outpatient (REF) | payer OTHER, SELFPAY ==
[2022-05-13 11:37] LABS: Hematocrit 34.9 % (37.0-47.0); Hemoglobin 11.6 g/dl (12.0-16.0); Mean Corpuscular HGB Conc 33.2 g/dl (31.0-35.0); Mean Corpuscular Hemoglobin 30.9 pg (27.0-33.0); Mean Corpuscular Volume 93.1 fL (80.0-98.0); Mean Platelet Volume 8.8 fL (9.4-12.3); Platelet Count 317 X10*3/uL (160-400); Red Blood Count 3.75 X10*6/uL (4.20-5.50); Red Cell Distribution Width 13.2 % (11.0-16.0); White Blood Count 9.8 X10*3/uL (4.8-10.8)
[2022-05-13 12:39] LABS: Glucose 1 Hour PP 50gm Dose 91 mg/dL (60-140)
[2022-05-14 08:31] LABS: Syphilis Screen Nonreactive (Nonreactive)
== END 2022-05-13 09:56 | disposition home or self-care (01) ==
LOC: HO.LAB 09:55
PROVIDERS: PCP Nurse Practitioner Family; Visit Provider Advanced Practice Midwife
DX: Z34.92 Encounter for supervision of normal pregnancy, unspecified, second trimester (principal); Z20.2 Contact with and (suspected) exposure to infections with a predominantly sexual mode of transmission
CPT/HCPCS: 36415; 85027; 86780

== ENCOUNTER → 2022-05-22 14:43 | Outpatient (BNVA) | payer OTHER, SELFPAY | PROVIDERS: Visit Provider Advanced Practice Midwife | DX: O43.123 Velamentous insertion of umbilical cord, third trimester (principal); Z3A.29 29 weeks gestation of pregnancy | CPT/HCPCS: 99212 ==

== ENCOUNTER → 2022-06-06 09:47 | Outpatient (BNVA) | payer OTHER, SELFPAY | PROVIDERS: Visit Provider Advanced Practice Midwife | DX: O43.93 Unspecified placental disorder, third trimester (principal); Z3A.32 32 weeks gestation of pregnancy | CPT/HCPCS: 81003; 99212 ==